=== PATIENT | male | born 1945 | race Caucasian/White ===

== ENCOUNTER 2025-02-02 23:11 | Emergency (ER) | payer MEDICARE, SELFPAY ==
[2025-02-02 23:14] VITALS: BMI 30.1
[2025-02-02 23:15] VITALS: BP 168/88; PULSE 85; RESP 17; TEMP 36.6; O2SAT 96; BMI 30.1
--- NOTE | 2025-02-02 23:15 | XR_ITS ---
PROCEDURE INFORMATION: Exam: XR Pelvis Exam date and time: 02/02/2025 11:13 PM Age: 79 years old Clinical indication: Injury or trauma; Fall; Other: Pain TECHNIQUE: Imaging protocol: Radiologic exam of the pelvis. Views: 1 or 2 view. COMPARISON: CR XR PELVIS 1-2V 02/02/2025 11:13 PM FINDINGS: Bones/joints: Moderate degenerative changes throughout the lower lumbar spine. Osseous alignment appears normal. No acute fracture. Soft tissues: Unremarkable. IMPRESSION: No acute abnormality
--- NOTE | 2025-02-02 23:15 | XR_ITS ---
PROCEDURE INFORMATION: Exam: XR Chest Exam date and time: 02/02/2025 11:15 PM Age: 79 years old Clinical indication: Injury or trauma; Fall; Other: Pain TECHNIQUE: Imaging protocol: Radiologic exam of the chest. Views: 1 view. COMPARISON: CR XR CHEST PORTABLE 02/02/2025 11:15 PM FINDINGS: Lungs: Lung volumes are slightly low. No active infiltrate. Pleural spaces: No pleural fluid. No definite pneumothorax. Curvilinear density over the lateral right chest are compatible with skin folds. Heart/Mediastinum: Calcified aortopulmonary window lymph node noted in the mediastinum. Moderate atherosclerotic calcification of the aorta. Bones/joints: Moderate degenerative changes of the spine and shoulders. No acute osseous abnormality IMPRESSION: No acute abnormality
--- NOTE | 2025-02-02 23:16 | CT_ITS ---
PROCEDURE INFORMATION: Exam: CTA Chest With Contrast Exam date and time: 02/03/2025 12:01 AM Age: 79 years old Clinical indication: Injury or trauma; Additional info: Trauma, critical injury suspected TECHNIQUE: Imaging protocol: Computed tomographic angiography of the chest with contrast. Exam focused on the arteries. 3D rendering (Not supervised by radiologist): MIP and/or 3D reconstructed images were created by the technologist. Radiation optimization: All CT scans at this facility use at least one of these dose optimization techniques: automated exposure control; mA and/or kV adjustment per patient size (includes targeted exams where dose is matched to clinical indication); or iterative reconstruction. Contrast material: ISO 370; Contrast volume: 80 ml; Contrast route: INTRAVENOUS (IV); COMPARISON: CR XR CHEST PORTABLE 02/02/2025 11:15 PM FINDINGS: Pulmonary arteries: Normal. No pulmonary emboli. Aorta: Moderate atherosclerotic calcification throughout the thoracic aorta. No evidence of aneurysm or dissection. No evidence of acute injury. Lungs: Unremarkable. No consolidation. No masses. Pleural spaces: Moderate volume of simple appearing right pleural fluid. No pneumothorax. Heart: Small pericardial effusion. Heart is mildly enlarged. Lymph nodes: Unremarkable. No enlarged lymph nodes. Bones/joints: Moderate multilevel anterior syndesmophyte formation throughout the lower thoracic spine. No vertebral body compression. No acute fracture. Soft tissues: Unremarkable. IMPRESSION: 1. Moderate volume simple appearing right pleural fluid 2. Mild cardiomegaly with small pericardial effusion 3. Chronic osseous and atherosclerotic changes as described
--- NOTE | 2025-02-02 23:16 | CT_ITS ---
PROCEDURE INFORMATION: Exam: CT Lumbar Spine Without Contrast Exam date and time: 02/02/2025 11:55 PM Age: 79 years old Clinical indication: Injury or trauma; Fall; Additional info: Trauma, critical injury suspected TECHNIQUE: Imaging protocol: Computed tomography of the lumbar spine without contrast. Radiation optimization: All CT scans at this facility use at least one of these dose optimization techniques: automated exposure control; mA and/or kV adjustment per patient size (includes targeted exams where dose is matched to clinical indication); or iterative reconstruction. COMPARISON: CT THORACIC SPINE WO CON 02/02/2025 11:52 PM FINDINGS: Bones/joints: Osseous alignment is normal. No vertebral body compression. No acute fracture. Moderate multilevel disc bulge and anterior osteophyte formation throughout the lumbar spine. Severe bilateral facet arthropathy at L4-L5 and L5-S1. Severe narrowing of the bilateral L3 and L4 neural foramina. More mild neural foraminal stenosis at the other lumbar levels. Moderate degenerative changes of the bilateral sacroiliac joints. Pleural spaces: Partially visualized right pleural fluid. Vasculature: Diffuse atherosclerotic calcification throughout the abdominal aorta and its branches. No aneurysm. Soft tissues: Unremarkable. IMPRESSION: No acute abnormality in the lumbar spine. Multilevel degenerative changes as noted
--- NOTE | 2025-02-02 23:16 | CT_ITS ---
PROCEDURE INFORMATION: Exam: CTA Abdomen and Pelvis With Contrast Exam date and time: 02/03/2025 12:01 AM Age: 79 years old Clinical indication: Injury or trauma; Additional info: Trauma, critical injury suspected TECHNIQUE: Imaging protocol: Computed tomographic angiography of the abdomen and pelvis with contrast. Exam focused on the arteries. 3D rendering (Not supervised by radiologist): MIP and/or 3D reconstructed images were created by the technologist. Radiation optimization: All CT scans at this facility use at least one of these dose optimization techniques: automated exposure control; mA and/or kV adjustment per patient size (includes targeted exams where dose is matched to clinical indication); or iterative reconstruction. Contrast material: ISO 370; Contrast volume: 80 ml; Contrast route: INTRAVENOUS (IV); COMPARISON: CR XR PELVIS 1-2V 02/02/2025 11:13 PM FINDINGS: Aorta: Moderate atherosclerotic calcification throughout the abdominal aorta. No evidence of aneurysm or dissection. Celiac and mesenteric arteries: Mild stenosis of the distal portions of the celiac and superior mesenteric arteries. Inferior mesenteric artery is patent. Renal arteries: Mild stenosis of the right renal artery. Left renal artery appears widely patent. Right iliac arteries: No occlusion or significant stenosis. Left iliac arteries: No occlusion or significant stenosis. Liver: No mass. Gallbladder and biliary ducts: Unremarkable. No calcified stones. No ductal dilation. Pancreas: Unremarkable. No mass. No ductal dilation. Spleen: Unremarkable. No splenomegaly. Adrenal glands: Unremarkable. No mass. Kidneys and ureters: Unremarkable. No solid mass. No hydronephrosis. Stomach and bowel: Unremarkable. No obstruction. No mucosal thickening. Appendix: No evidence of appendicitis. Intraperitoneal space: Unremarkable. No free air. No significant fluid collection. Lymph nodes: Unremarkable. No enlarged lymph nodes. Urinary bladder: Unremarkable. No mass. Reproductive: Unremarkable as visualized. Bones/joints: [id number] multilevel degenerative disc changes and facet arthropathy throughout the lower spine. No vertebral body compression. No acute fracture. Soft tissues: Unremarkable. IMPRESSION: No acute posttraumatic changes. Chronic osseous and atherosclerotic changes as described.
--- NOTE | 2025-02-02 23:16 | CT_ITS ---
PROCEDURE INFORMATION: Exam: CTA Head With Contrast, Arteriography Exam date and time: 02/02/2025 11:58 PM Age: 79 years old Clinical indication: Trauma, critical injury suspected TECHNIQUE: Imaging protocol: Computed tomographic angiography of the head with contrast. Exam focused on the arteries. 3D rendering (Not supervised by radiologist): MIP and/or 3D reconstructed images were created by the technologist. Radiation optimization: All CT scans at this facility use at least one of these dose optimization techniques: automated exposure control; mA and/or kV adjustment per patient size (includes targeted exams where dose is matched to clinical indication); or iterative reconstruction. Contrast material: ISO; Contrast volume: 80 ml; Contrast route: INTRAVENOUS (IV); COMPARISON: CT HEAD/BRAIN WO CON 02/02/2025 11:45 PM FINDINGS: ANTERIOR CIRCULATION: Right internal carotid artery: Intracranial segment is patent with no significant stenosis. No aneurysm. Right middle cerebral artery: No occlusion or significant stenosis. No aneurysm. Right anterior cerebral artery: No occlusion or significant stenosis. No aneurysm. Left internal carotid artery: Intracranial segment is patent with no significant stenosis. No aneurysm. Left middle cerebral artery: No occlusion or significant stenosis. No aneurysm. Left anterior cerebral artery: No occlusion or significant stenosis. No aneurysm. POSTERIOR CIRCULATION: Right vertebral artery: No occlusion or significant stenosis. No aneurysm. Left vertebral artery: No occlusion or significant stenosis. No aneurysm. Basilar artery: No occlusion or significant stenosis. No aneurysm. Right posterior cerebral artery: No occlusion or significant stenosis. No aneurysm. Left posterior cerebral artery: No occlusion or significant stenosis. No aneurysm. Brain: No definite mass, mass effect, or midline shift. Cerebral ventricles: No ventriculomegaly. Orbital cavities: Hematoma overlies the left orbit and left frontal region without retrobulbar hematoma and without subjacent fracture. Active extravasation from a small vessel along the superolateral aspect of this hematoma. Image 52 of the coronal series. Bones/joints: Unremarkable. No acute fracture. Soft tissues: Unremarkable. IMPRESSION: Hematoma overlies the left orbit and left frontal region without retrobulbar hematoma and without subjacent fracture. Active extravasation from a small vessel along the superolateral aspect of this hematoma. 52 of the coronal series.
--- NOTE | 2025-02-02 23:16 | CT_ITS ---
PROCEDURE INFORMATION: Exam: CT Head Without Contrast Exam date and time: 02/02/2025 11:45 PM Age: 79 years old Clinical indication: Injury or trauma; Fall; Additional info: Trauma, critical injury suspected TECHNIQUE: Imaging protocol: Computed tomography of the head without contrast. Total images: 618 Radiation optimization: All CT scans at this facility use at least one of these dose optimization techniques: automated exposure control; mA and/or kV adjustment per patient size (includes targeted exams where dose is matched to clinical indication); or iterative reconstruction. COMPARISON: No relevant prior studies available. FINDINGS: Brain: No acute intracranial hemorrhage, midline shift, or mass. Mild to moderate cortical and cerebellar atrophy. Mild remote white matter small-vessel ischemic changes. No acute territorial infarct. Basilar cisterns are maintained. Cerebral ventricles: No ventriculomegaly. Paranasal sinuses: Mild polypoid mucosal thickening base of the right maxillary sinus. Paranasal sinuses are otherwise clear. Mastoid air cells: Visualized mastoid air cells are well aerated. Orbital cavities: Bilateral orbital lens replacement. Bones: Unremarkable. No acute fracture. Soft tissues: Considerable left preorbital hematoma extending within the left frontal scalp and with considerable adjacent left facial edema. Vasculature: Severe calcifications bilateral intracranial internal carotid arteries. IMPRESSION: 1. Considerable left preorbital hematoma extending within the left frontal scalp. Contiguous left facial edema. 2. No acute intracranial process. 3. Chronic intracranial findings. 4. No skull or orbital fracture.
--- NOTE | 2025-02-02 23:16 | CT_ITS ---
PROCEDURE INFORMATION: Exam: CT Thoracic Spine Without Contrast Exam date and time: 02/02/2025 11:52 PM Age: 79 years old Clinical indication: Injury or trauma; Fall; Blunt trauma (contusions or hematomas); Additional info: Trauma, critical injury suspected TECHNIQUE: Imaging protocol: Computed tomography of the thoracic spine without contrast. Radiation optimization: All CT scans at this facility use at least one of these dose optimization techniques: automated exposure control; mA and/or kV adjustment per patient size (includes targeted exams where dose is matched to clinical indication); or iterative reconstruction. COMPARISON: CT CERVICAL SPINE WO CON 02/02/2025 11:49 PM FINDINGS: Bones/joints: Mild scoliosis of the upper thoracic spine. No vertebral body compression. No acute fracture. Moderate multilevel anterior syndesmophyte formation throughout the mid to lower thoracic spine. Soft tissues: Unremarkable. Vasculature: Dense atherosclerotic calcification throughout the thoracic aorta. No aneurysm. Pleural spaces: Partially visualized right pleural fluid. IMPRESSION: 1. No acute abnormality of the thoracic spine. 2. Partially visualized right pleural fluid
--- NOTE | 2025-02-02 23:16 | CT_ITS ---
PROCEDURE INFORMATION: Exam: CTA Neck With Contrast Exam date and time: 02/02/2025 11:58 PM Age: 79 years old Clinical indication: Injury or trauma; Fall; Additional info: Trauma, critical injury suspected TECHNIQUE: Imaging protocol: Computed tomographic angiography of the neck with contrast. Exam focused on the cervical segments of the vasculature. 3D rendering (Not supervised by radiologist): MIP and/or 3D reconstructed images were created by the technologist. Radiation optimization: All CT scans at this facility use at least one of these dose optimization techniques: automated exposure control; mA and/or kV adjustment per patient size (includes targeted exams where dose is matched to clinical indication); or iterative reconstruction. Contrast material: ISO; Contrast volume: 80 ml; Contrast route: INTRAVENOUS (IV); COMPARISON: CT CERVICAL SPINE WO CON 02/02/2025 11:49 PM FINDINGS: Atherosclerosis is seen throughout the carotid and vertebral systems without high-grade stenosis. The Right common carotid artery: No high-grade stenosis. No dissection or occlusion. Right internal carotid artery: No high-grade stenosis of the extracranial segment. No dissection or occlusion. Right external carotid artery: No occlusion or high-grade stenosis of the origin. Left common carotid artery: No high-grade stenosis. No dissection or occlusion. Left internal carotid artery: No high-grade stenosis of the extracranial segment. No dissection or occlusion. Left external carotid artery: No occlusion or high-grade stenosis of the origin. Right vertebral artery: No high-grade stenosis. No dissection or occlusion. Left vertebral artery: No high-grade stenosis. No dissection or occlusion. Soft tissues: Normal. No significant soft tissue swelling. Bones/joints: No acute fracture. Pleural spaces: Moderate right pleural effusion. IMPRESSION: No evidence of acute vascular injury to the neck. REFERENCES: NASCET CRITERIA. The degree of stenosis in the cervical segment of the internal carotid artery is based on NASCET criteria. Normal is no stenosis. Mild is less than 50% stenosis. Moderate is 50-69% stenosis. Severe is 70% to 99% stenosis. Total occlusion is no detectable patent lumen.
--- NOTE | 2025-02-02 23:16 | CT_ITS ---
PROCEDURE INFORMATION: Exam: CT Cervical Spine Without Contrast Exam date and time: 02/02/2025 11:49 PM Age: 79 years old Clinical indication: Injury or trauma; Additional info: Trauma, critical injury suspected TECHNIQUE: Imaging protocol: Computed tomography of the cervical spine without contrast. Total images: 564 Radiation optimization: All CT scans at this facility use at least one of these dose optimization techniques: automated exposure control; mA and/or kV adjustment per patient size (includes targeted exams where dose is matched to clinical indication); or iterative reconstruction. COMPARISON: CT FACIAL BONES WO CON 02/02/2025 11:47 PM FINDINGS: Bones: Straightened cervical lordosis with minor levocurvature. Vertebral body height and alignment is maintained. The base of the dens and the C1 and C2 articulations are preserved with mild degenerative arthropathy. The cervicooccipital junction is intact. The facet joints are appropriately aligned with moderate multilevel degenerative spondylosis, greatest on the left at C2-C3 and C3-C4. Posterior elements are intact. Moderate to severe degenerative disc disease C4 through T1 with associated posterior projecting disc osteophyte complex at all these levels. Mild multilevel acquired spinal canal stenosis secondary to degenerative changes. Multilevel bilateral neural foraminal encroachments. Bridging anterior endplate osteophyte formation at multiple consecutive levels. No concerning bone lesions. Lungs: Lung apices are clear. Pleural spaces: Right pleural effusion with simple water attenuation. Vasculature: Mild calcification right greater than left carotid arteries. Soft tissues: No prevertebral soft tissue swelling. Unremarkable soft tissues of the neck. IMPRESSION: 1. No acute cervical fracture or traumatic subluxation. 2. Straightened lordosis with minor levocurvature from position or muscle spasm. 3. Severe multilevel degenerative disc disease. 4. Right pleural effusion with water attenuation.
--- NOTE | 2025-02-02 23:17 | CT_ITS ---
PROCEDURE INFORMATION: Exam: CT Maxillofacial Without Contrast Exam date and time: 02/02/2025 11:47 PM Age: 79 years old Clinical indication: Injury or trauma; Fall; Additional info: Trauma, critical injury suspected TECHNIQUE: Imaging protocol: Computed tomography of the face without contrast. Total images: 286 Radiation optimization: All CT scans at this facility use at least one of these dose optimization techniques: automated exposure control; mA and/or kV adjustment per patient size (includes targeted exams where dose is matched to clinical indication); or iterative reconstruction. COMPARISON: CT HEAD/BRAIN WO CON 02/02/2025 11:45 PM FINDINGS: Paranasal sinuses: Mild polypoid mucosal thickening base of the right maxillary sinus. Paranasal sinuses are otherwise clear. No air-fluid levels. Orbital cavities: Orbital globes appear symmetric. Bilateral lens replacement. No retro-orbital mass, fluid, or air. Nasal cavity: Mild nasal septal deviation to the left. Unremarkable nasal turbinates. Teeth: Dental artifact obscuring adjacent structures. Bones: No acute orbital or facial bone fracture. No concerning bone lesions. Unremarkable skull base anatomy. No mandibular fracture or dislocation. Symmetric temporomandibular joints. No acute nasal bone fracture. Soft tissues: Large left preorbital hematoma, extending to the left frontal scalp. Additional considerable left facial edema. IMPRESSION: 1. Considerable left preorbital hematoma, extending to the left frontal scalp. 2. Additional considerable left facial edema 3. No acute facial bone fracture. 4. Mild polypoid mucosal thickening base of the right maxillary sinus.
[2025-02-02 23:20] VITALS: BP 188/127; PULSE 89; RESP 18; O2SAT 97
--- NOTE | 2025-02-02 23:21 | ECG_ITS ---
APPROVED REPORT Exam: Resting ECG HR:92 bpm ECG Measurements Heart Rate 92 AXES QRSd 94 QRS 12 QT 387 T 43 QTc 436 Conclusion ATRIAL FIBRILLATION ABNORMAL RHYTHM ECG No STEMI Electronically signed by : ZULMA WHITTAKER, 02/03/2025 07:06:40
[2025-02-02] MEDS: LACTATED RINGERS 1000ML 1,000 ML 999 ML IV (23:22)
[2025-02-02 23:24] LABS: Hematocrit 31.9 % (42.0-52.0); Hemoglobin 11.6 g/dL (14.1-18.0); Immature Granulocytes % 0.3 %; Mean Corpuscular HGB Conc 36.4 g/dL (31.8-35.4); Mean Corpuscular Volume 121.3 fl (80-94); Nucleated Red Blood Cells % 0 %; Platelet Count 123 K/mm3 (142-424); Red Blood Count 2.63 M/mm3 (4.60-6.20); Red Cell Distribution Width-SD 56.6 fL; White Blood Count 6.4 K/mm3 (4.8-10.8)
[2025-02-02 23:27] VITALS: BP 181/111; PULSE 79; RESP 14; O2SAT 97
[2025-02-02 23:27] LABS: Mean Corpuscular Hemoglobin 44.1 pg (27.0-31.2)
[2025-02-02 23:29] VITALS: BP 181/110; PULSE 75; RESP 16; O2SAT 98
[2025-02-02 23:36] LABS: Activated Partial Thrombo Time 28.6 seconds (22.8-30.6); INR 1.03 (0.9-1.1); Prothrombin Time 11.4 seconds (10.1-12.5)
[2025-02-02 23:37] LABS: Alanine Aminotransferase 26 U/L (12-78); Albumin Level 4.4 g/dl (3.5-5.0); Albumin/Globulin Ratio 1.4 (1.1-1.8); Alkaline Phosphatase 196 U/L (38-126); Anion Gap 19.0 mEq/L (5-15); Aspartate Amino Transferase 56 U/L (17-59); Bilirubin,Total 0.9 mg/dl (0.2-1.3); Blood Urea Nitrogen 23 mg/dl (9-20); Calcium 8.9 mg/dl (8.4-10.2); Carbon Dioxide 26 mmol/L (22.0-30.0); Chloride 94 mmol/L (98-107); Creatinine Clearance Estimated 83 mL/min (50-200); Creatinine,Serum 1.00 mg/dl (0.66-1.25); Estimated Glomerular Filt Rate 72 ml/min (>60); GFR (African American) 87 ML/MIN (>60); Globulin 3.1 g/dL (1.3-3.2); Glucose 144 mg/dl (74-100); Potassium 4.0 mmoL/L (3.5-5.1); Sodium 135 mmol/L (136-145); Total Protein,Serum 7.5 g/dl (6.3-8.2)
--- NOTE | 2025-02-02 23:40 | XR_ITS ---
PROCEDURE INFORMATION: Exam: XR Pelvis Exam date and time: 02/03/2025 12:06 AM Age: 79 years old Clinical indication: Injury or trauma; Fall; Blunt trauma (contusions or hematomas); Bilateral; Abdomen, lower TECHNIQUE: Imaging protocol: Radiologic exam of the pelvis. Views: 1 or 2 view. COMPARISON: CT ANGIO ABD/PEL - TRAUMA 02/03/2025 12:01 AM FINDINGS: Bones/joints: Osseous alignment is normal. No acute fracture. No severe arthritic changes in the bony pelvis. Soft tissues: Unremarkable. IMPRESSION: No acute abnormality
[2025-02-02 23:41] VITALS: BP 181/110; PULSE 86; RESP 17; O2SAT 98
[2025-02-02 23:48] LABS: Troponin I 0.02 ng/ml (0.00-0.034)
[2025-02-03] MEDS: SODIUM CHLORIDE 0.9% 10ML SYR (RAD ONLY) 10 ML IV
[2025-02-03] MEDS: IOPAMIDOL-370 (76%);100ML BOTTLE 160 ML IV
[2025-02-03] MEDS: 0.9 % SODIUM CHLORIDE 50 ML VIAL IV
--- NOTE | 2025-02-03 00:08 | HMH.EDGENADL ---
Discharge Plan Prescriptions Prescriptions: No Action atorvastatin 40 mg tablet 40 mg PO HS Patient Comments: TAKE 1 TABLET BY MOUTH EVERY DAY IN THE EVENING levothyroxine 137 mcg tablet 137 mcg PO DAILY Patient Comments: TAKE 1 TABLET EVERY DAY BY ORAL ROUTE IN THE MORNING. carvedilol 12.5 mg tablet 12.5 mg PO BID Patient Comments: TAKE 1 TABLET BY MOUTH TWICE A DAY WITH FOOD lisinopril 20 mg tablet 20 mg PO DAILY Patient Comments: TAKE 1 TABLET BY MOUTH EVERY DAY sertraline 100 mg tablet 100 mg PO DAILY Patient Comments: TAKE 1 TABLET BY MOUTH EVERY DAY potassium chloride 10 mEq tablet extended release 10 meq PO DAILY PRN (Reason: Spasms) Patient Comments: TAKE 1 TABLET BY MOUTH EVERY DAY NEEDED FOR 90 DAYS primidone 250 mg tablet 500 - 750 mg PO HS Patient Comments: TAKE 2 TO 3 TABLETS AT BEDTIME propranolol 20 mg tablet 20 mg PO BID Patient Comments: TAKE 1 TABLET BY MOUTH EVERY MORNING AND 1 AT NOON fluticasone propionate 50 mcg/actuation spray,suspension 1 spray INTRANASAL BID PRN (Reason: Nasal Congestion) Patient Comments: USE 1 SPRAY IN EACH NOSTRIL EVERY DAY DIRECTED NEEDED Eliquis 5 mg tablet 5 mg PO BID Patient Comments: TAKE 1 TABLET BY MOUTH TWICE A DAY Referrals Follow up/Referrals: Provider,Referral, MD [Primary Care Provider, Medical] - See instructions Clinical Impressions Clinical Impression: Laceration of face, Hematoma of face, Ground-level fall, Alcohol intoxication, Multiple skin tears, Pleural effusion, Pericardial effusion Stand Alone Forms Stand Alone Forms: Transfer Record - ED Print Language Print Language: Iranian Discharge ED Provider: Christina Baldwin Adult HPI General Chief complaint: Trauma Alert Stated complaint: fall Time Seen by Provider: 02/02/25 23:13 Mode of Arrival: EMS Source of Information: Patient and EMS Limitations: No Limitations Description of Symptoms (Recalled from ER Triage Doc. by RN): Laceration and swelling to left head History of Present Illness HPI narrative: 79-year-old male with history of atrial fibrillation on Eliquis presents to the ER with EMS after fall. Patient reports he was standing at the bottom of his steps when he lost his balance and fell forward striking his left face on the steps. Reportedly no loss of consciousness. EMS was called and found the patient awake with bleeding from laceration above left eyebrow. He had been able to move himself into the house. They report he was hypertensive during transportation. He did not receive any medications while being transported. He reports no numbness, tingling, or weakness. Denies neck pain. He does report mild mid back pain which he reports is chronic. His only new complaint is the pain in the left forehead/eyebrow area. He has swelling around the left eye but when open he states he can see out of it just fine. He denies any chest pain or difficulty breathing. He admits to drinking alcohol tonight. EMS reports he told them he drank 2 bourbon minor and a glass of wine. He states this is about how much he typically drinks on a daily basis. He has multiple old skin tears that he states are from his blood thinners. Related Data Home Medications ?Medication ?Instructions ?Recorded ?Confirmed apixaban 5 mg tablet (Eliquis) 5 mg PO BID 02/03/25 02/03/25 atorvastatin 40 mg tablet 40 mg PO HS 02/03/25 02/03/25 carvedilol 12.5 mg tablet 12.5 mg PO BID 02/03/25 02/03/25 fluticasone propionate 50 1 spray intranasal BID PRN Nasal 02/03/25 02/03/25 mcg/actuation nasal Congestion spray,suspension levothyroxine 137 mcg tablet 137 mcg PO DAILY 02/03/25 02/03/25 lisinopril 20 mg tablet 20 mg PO DAILY 02/03/25 02/03/25 potassium chloride 10 mEq 10 meq PO DAILY PRN Spasms 02/03/25 02/03/25 tablet,extended release primidone 250 mg tablet 500 - 750 mg PO HS 02/03/25 02/03/25 propranolol 20 mg tablet 20 mg PO BID 02/03/25 02/03/25 sertraline 100 mg tablet 100 mg PO DAILY 02/03/25 02/03/25 Allergies Allergy/AdvReac Type Severity Reaction Status Date / Time No Known Allergies Allergy Verified 02/02/25 23:14 [facility] Disclaimer: The information contained in this section may have been updated after the patient was seen, as this information can be updated by other users. Social History Smoking Status: Former smoker alcohol intake: current current occupational status: other Travel in the last 8 weeks?: None ROS Obtained: Yes Systems reviewed as appropriate & no additional complaints except as documented Per HPI Physical Exam General General appearance: alert and appears intoxicated Head Head exam: normocephalic and other (Laceration above the left eyebrow approximately 1.5 cm in length with pulsatile bleeding. Skin tear left cheek.) Eye Eye exam: Present PERRL, EOMI and other (Significant left periorbital swelling but when I assist the patient with opening the eye he states his vision is normal out of it and has full extraocular movements which are painless. No proptosis. Normal fluorescein exam.) ENT ENT exam: Present mucous membranes moist Neck Neck exam: Present normal inspection, full ROM and other (C-collar applied upon arrival to the ER); Absent tenderness Chest Chest inspection: Present symmetric chest wall rise; Absent tenderness Respiratory Respiratory exam: Present normal lung sounds bilaterally; Absent respiratory distress, wheezes or stridor Cardiovascular Cardiovascular exam: Present regular rate and irregular rhythm Abdominal Exam Abdominal exam: Present soft; Absent distention or tenderness Extremities Exam Extremities exam: Present full ROM and other (Skin tears on bilateral upper extremities; pelvis stable); Absent tenderness, edema or joint swelling Back Exam Back exam: Present tenderness (Mild diffuse with no focal tenderness, no deformity or step-off); Absent CVA tenderness (R) or CVA tenderness (L) Neurological Exam Neurological exam: Present alert and oriented X3; Absent motor sensory deficit Psychiatric Psychiatric exam: Present normal affect and normal mood Skin Skin exam: Present warm and dry Medical Decision Making Medical Records Medical records reviewed: Yes I reviewed the patient's medical records. Screening: Per USPSTF and CDC recommendations, given the prevalence of disease in our region, it is our hospital?s policy to screen for HIV and viral Hepatitis for all patients aged 18 and over and those with ongoing risk factors. [place] Inquiry Pt receiving controlled substance: No Vital Signs: 02/02/25 23:15 02/02/25 23:20 02/02/25 23:27 Temperature 98 F Temperature Source Oral Pulse Rate 89 79 Pulse Rate [Radial] 85 Respiratory Rate 17 18 14 Blood Pressure 188/127 H 181/111 H Blood Pressure [Left Arm] 168/88 H Blood Pressure Mean 155 139 Blood Pressure Mean [Left Arm] 114 Blood Pressure Source [Left Arm] Manual Cuff/ Auscultation Blood Pressure Position [Left Arm] Supine 02 Sat by Pulse Oximetry 96 97 97 Oxygen Delivery Method Room Air 02/02/25 23:29 02/02/25 23:41 02/03/25 00:27 Temperature Temperature Source Pulse Rate 75 80 Pulse Rate [Radial] 86 Respiratory Rate 16 17 16 Blood Pressure 181/110 H 169/117 H Blood Pressure [Left Arm] 181/110 H Blood Pressure Mean 133 124 Blood Pressure Mean [Left Arm] 133 Blood Pressure Source [Left Arm] Automatic Cuff Blood Pressure Position [Left Arm] Supine 02 Sat by Pulse Oximetry 98 98 92 L Oxygen Delivery Method Room Air 02/03/25 00:30 Temperature Temperature Source Pulse Rate 80 Pulse Rate [Radial] Respiratory Rate 18 Blood Pressure 179/116 H Blood Pressure [Left Arm] Blood Pressure Mean 120 Blood Pressure Mean [Left Arm] Blood Pressure Source [Left Arm] Blood Pressure Position [Left Arm] 02 Sat by Pulse Oximetry 97 Oxygen Delivery Method Lab Data Lab Results 02/02/25 23:15: WBC 6.4, RBC 2.63 L, Hgb 11.6 L, Hct 31.9 L, MCV 121.3 H, MCH 44.1 H*, MCHC 36.4 H, RDW 12.8, Plt Count 123 L, MPV 10.7 H, Neut % (Auto) 71.0, Lymph % (Auto) 19.3, [place] % (Auto) 5.5, Eos % (Auto) 3.1, Baso % (Auto) 0.8, Neut # (Auto) 4.5, Lymph # (Auto) 1.2, [place] # (Auto) 0.4, Eos # (Auto) 0.2, Baso # (Auto) 0.1, PT 11.4, INR 1.03, APTT 28.6, Sodium 135 L, Potassium 4.0, Chloride 94 L, Carbon Dioxide 26, Anion Gap 19.0 H, BUN 23 H, Creatinine 1.00, Estimated Creat Clear 83, Estimated GFR 72, Est GFR ( Amer) 87, Glucose 144 H, Lactate 2.6 H, Calcium 8.9, Total Bilirubin 0.9, AST 56, ALT 26, Alkaline Phosphatase 196 H, Troponin I 0.02, Total Protein 7.5, Albumin 4.4, Globulin 3.1, Albumin/Globulin Ratio 1.4, Plasma/Serum Alcohol 112 H 02/03/25 00:23: Urine Color Yellow, Urine Appearance Clear, Urine pH 6.0, Ur Specific [place] <= 1.005, Urine Protein 1+ A, Urine Glucose (UA) Negative, Urine Ketones Negative, Urine Blood Trace-i, Urine Nitrate Negative, Urine Bilirubin Negative, Urine Urobilinogen 0.2, Ur Leukocyte Esterase Negative, Urine RBC Occasional, Urine WBC None, Ur Squamous Epith Cells Occasional, Urine Bacteria None, Urine Opiates Screen Negative, Urine Methadone Screen Negative, Ur Barbituates Screen Positive H, Ur Phencyclidine Scrn Negative, Ur Amphetamines Screen Negative, U Benzodiazepines Scrn Negative, Urine Cocaine Screen Negative, U Marijuana (THC) Screen Negative 02/02/25 23:15 02/02/25 23:15 Orders (Tests/Meds): ED MEDICATIONS Generic Name Dose Route Start Last Admin Trade Name Freq PRN Reason Stop Dose Admin Sodium Chloride 10 ml 02/02/25 23:15 Sodium Chloride 0.9% 10ml Flush Syringe IV 03/04/25 23:14 NEEDED PRN Maintain IV Site Tetanus/Reduced Diphtheria/Acell Pertussis 0.5 ml 02/02/25 23:15 Tet/Diphth/Pert-Adult 0.5ml Syringe IM 03/04/25 23:14 .ONCE D[place] Discontinued Medications Generic Name Dose Route Start Last Admin Trade Name Freq PRN Reason Stop Dose Admin Lactated Ringer's 1,000 mls @ 999 mls/hr 02/02/25 23:15 02/03/25 00:28 Lactated Ringer's 1000 Ml Bag IV 02/03/25 00:15 Infused .Q1H1M DALTON Infusion Iopamidol 160 ml 02/02/25 23:59 02/03/25 00:00 Iopamidol-370 (76%);100ml Bottle IV 02/03/25 00:00 160 ml ONCE ONE Administration Sodium Chloride 50 ml 02/02/25 23:59 02/03/25 00:00 0.9 % Sodium Chloride 50 Ml Vial IV 02/03/25 00:00 50 ml ONCE ONE Administration Sodium Chloride 10 ml 02/02/25 23:59 02/03/25 00:00 Sodium Chloride 0.9% 10ml Syr (Rad Only) IV 02/03/25 00:00 10 ml ONCE ONE Administration ORDERS Category Date Time Status CT angio abd/pel - TRAUMA Stat Cat Scan 02/02/25 23:[address] angio chest - dissection Stat Cat Scan 02/02/25 23:[address] angio head Stat Cat Scan 02/02/25 23:[address] angio neck Stat Cat Scan 02/02/25 23:[address] cervical spine wo con Stat Cat Scan 02/02/25 23:[address] facial bones wo con Stat Cat Scan 02/02/25 23:[address] head/brain wo con Stat Cat Scan 02/02/25 23:[address] lumbar spine wo con Stat Cat Scan 02/02/25 23:[address] thoracic spine wo con Stat Cat Scan 02/02/25 23:16 Completed POCUS Point of Care (ER Only) Stat Exams 02/02/25 23:19 Completed XR chest portable Stat Exams 02/02/25 23:15 Completed XR pelvis 1-2V Stat Exams 02/02/25 23:15 Completed XR pelvis 1-2V Stat Exams 02/02/25 23:40 Completed Activated Partial Thrombo Time Stat Lab 02/02/25 23:15 Completed Complete Blood Count Auto Diff Stat Lab 02/02/25 23:15 Completed Comprehensive Metabolic Panel Stat Lab 02/02/25 23:15 Completed Drug Screen,Urine Stat Lab 02/03/25 00:23 Completed Ethyl Alcohol Stat Lab 02/02/25 23:15 Completed Lactic Acid Stat Lab 02/02/25 23:15 Completed Prothrombin Time INR Stat Lab 02/02/25 23:15 Completed Troponin I Q3H Lab 02/03/25 02:30 Ordered Troponin I Q3H Lab 02/03/25 05:30 Ordered Troponin I Stat Lab 02/02/25 23:15 Completed Urinalysis and Microscopic Stat Lab 02/03/25 00:23 Completed Medical Decision Narrative: In summary, this 79-year-old male with comorbidities described in the HPI presents to the emergency department today with laceration above the left eyebrow after ground-level fall. Patient was a trauma alert due to fall on blood thinners so I was at bedside upon patient's arrival. Airway intact, bilateral breath sounds present, 2+ left radial pulse, GCS 15. C-collar applied upon arrival to the ER though he has no pain or tenderness in the neck. Patient had obvious wound above left eyebrow that had a dressing from EMS covering it. E-FAST personally performed and interpreted is nondiagnostic due to inability to view the left upper quadrant. Patient is hemodynamically stable at this time so I have low suspicion for acute intra-abdominal or intrathoracic bleeding. Secondary exam demonstrates mild diffuse back tenderness with no focal tenderness, no deformity or step-off. Patient is GCS 15 with no neurologic deficits appreciated. He has significant left periorbital swelling, pressure in the left eye 17 mmHg, pressure in the right 15 mmHg, he requires assistance to open the left eye due to swelling but states his vision is normal through it and has full extraocular movements with no proptosis. No evidence of retrobulbar hematoma. Fluorescein exam negative for injury to the eye. Skin tears on the left side of the face as well as bilateral upper extremities. Full range of motion of the extremities. No other abnormalities appreciated on exam. Differential diagnosis includes but is not limited to laceration, intracranial bleed, skull fracture, facial fracture, alcohol intoxication, electrolyte abnormality, I considered the possibility of intrathoracic or intra-abdominal traumatic injury including potential arterial injury which I cannot rule out because patient has a nondiagnostic E-FAST. Chest and pelvis x-ray personally interpreted at bedside as they were performed demonstrate no obvious displaced rib fractures, no large pneumothorax or hemothorax, no open book pelvis fracture. See radiology reads for final interpreted Asians. Patient reports last tetanus shot was 2 years ago. Ruling out the most morbid conditions drove my assessment. Hematologic and serum labs, urinalysis, CT imaging including angiography were ordered. I examined the laceration above the left eyebrow which has pulsatile bleeding. I placed multiple [id number] sutures to obtain hemostatic control and then placed a compressive dressing prior to patient going to CT. ECG personally interpreted demonstrates atrial fibrillation, rate 92, normal axis, normal QTc, no STEMI. Labs personally reviewed demonstrate no leukocytosis, anemia is present with hemoglobin 11.6, MCH is elevated, nonactionable at this time. Mild thrombocytopenia platelets 123. PT/INR and APTT normal, CMP with prerenal azotemia, patient is receiving IV fluids. Mildly elevated anion gap and slightly elevated lactic likely related to patient's mild dehydration and known alcohol intoxication. Initial troponin 0.02, nonactionable at this time. UA negative for findings of infection, UDS positive for barbiturates which are not prescribed, EtOH 112. CT head personally interpreted demonstrates no skull fracture, no intracranial bleed, patient does have obvious left-sided soft tissue hematoma. On CTA head you can see a small area of active extravasation, however on reexamination patient is not having any additional bleeding from the wound. No evidence of retrobulbar hematoma. Patient has no acute injury to the axial spine. See radiology reads for full interpretations. CT cervical spine negative for injury, cervical collar was cleared by me. No midline pain or tenderness, full range of motion, no paresthesias. Additional CT imaging was all reviewed, patient does have simple appearing right sided pleural effusion as well as small pericardial effusion. No evidence of other acute traumatic injury. See radiology reads for full interpretations. On reassessment patient does not have any active bleeding from the wound, he appears to be hemostatic but the bleeding that he had in to the soft tissues has caused continued swelling of the left eyelids and I am now unable to open the eye to expose the eye. I reached out to and spoke with transfer center Dr. García about this patient. She suggested that Eliquis reversal may be indicated if he continues having bleeding or that he may require embolization. She recommended transfer to [facility] for further evaluation. I am not going to reverse this patient at this time because he is actively in atrial fibrillation and while he has had swelling that worsened in the ER over the first hour, over the last hour it seems to have stopped swelling and I suspect that the compressive dressing and swelling have provided tamponade to the bleeding soft tissue artery. I believe at this time reversal of Eliquis while he is in atrial fibrillation would be dangerous and potentially cause stroke which would be more devastating than continuing to have a small facial bleed when he continues to be hemodynamically stable and resting comfortably. Patient is agreeable to the plan for transfer. Dressing remains in place with no evidence of bleeding. He was reassessed immediately prior to transfer and remains GCS 15, airway patent, resting comfortably. He was transferred in stable condition. Procedures Miscellaneous Procedure Procedure Performed: E-FAST ultrasound Indication: Ground-level fall on jamia Performed by: Christina Baldwin MD Views: [LUQ/RUQ/pelvis/limited cardiac/limited thoracic] Interpretation: Peritoneal free fluid: Nondiagnostic due to inability to visualize splenorenal recess Pericardial effusion: Trace versus fat pad Right lung pneumothorax: Absent Left lung pneumothorax: Absent Impression: Nondiagnostic EFAST ultrasound Images were saved in the permanent archive. The study was not technically adequate. CPT 89058-32 (limited cardiac) 16125?26 (limited abdominal) 05214?26 (chest) This study was performed by me, and I personally interpreted all images/videos. Based on my clinical judgment, these images were inadequate and did necessitate further imaging. Critical Care Critical Care Time Critical Care Time: Yes Attestation: On 02/02/25, the high probability of a clinically significant, sudden or life threatening deterioration of the following system(s) required my full and direct attention, intervention and personal management. The time I documented below is in addition to time spent performing reported procedures but includes the following listed in this critical care notation. Total Time Total Critical Care Time: 35
[2025-02-03 00:27] VITALS: BP 169/117; PULSE 80; RESP 16; O2SAT 92
[2025-02-03 00:30] VITALS: BP 179/116; PULSE 80; RESP 18; O2SAT 97
[2025-02-03 00:33] LABS: Microscopic, Urine URINE MICROSCOPIC (MICROSCOPIC)
[2025-02-03 00:35] LABS: Bilirubin,Urine Negative (Negative); Color,Urine YELLOW (Yellow); Glucose,Urine (UA) Negative (Negative); Ketones,Urine Negative (Negative); Leukocyte Esterase,Urine Negative (Negative); PH,Urine 6.0 (5.0-8.5); Protein,Urine 1+ (Negative); Specific Gravity, Urine <= 1.005 (1.005-1.030); Urobilinogen,Urine 0.2 EU/dl (0.2)
[2025-02-03 00:46] LABS: RBC,Urine Occasional #/hpf (0-3); Squamous Epithelial Cell,Urine Occasional #/hpf (0-5)
[2025-02-03 00:47] LABS: Benzodiazepines Screen,Urine Negative ng/ml (<200)
[2025-02-03 00:48] LABS: Amphetamine/Metha Screen,Urine Negative ng/ml (<1000); Barbiturates Screen,Urine Positive ng/ml (<200)
[2025-02-03 00:49] LABS: Methadone Screen,Urine Negative ng/ml (<300)
[2025-02-03 00:51] LABS: Opiate Screen,Urine Negative ng/ml (<300)
[2025-02-03 01:01] VITALS: BP 147/81; PULSE 80; RESP 13; O2SAT 100
--- NOTE | 2025-02-03 01:06 | PC.NURSE ---
Call to [facility] for possible patient transfer
[2025-02-03 01:07] LABS: Phencyclidine Screen,Urine Negative ng/ml (<25)
[2025-02-03 01:30] VITALS: BP 148/95; PULSE 81; RESP 14; O2SAT 100
[2025-02-03 02:01] VITALS: BP 175/112; PULSE 76; RESP 15; O2SAT 98
--- NOTE | 2025-02-03 02:09 | PC.NURSE ---
Report called to Elham Bills RN at [facility]
[2025-02-03 02:24] VITALS: BP 175/112; PULSE 76; RESP 15; TEMP 36.6; O2SAT 98
[2025-02-03 03:21] LABS: Reflex Lactic Add Lactic Reflex
== END 2025-02-03 02:38 | disposition short-term general hospital (02) ==
PROVIDERS: Emergency Provider Emergency Medicine
DX: S01.81XA Laceration without foreign body of other part of head, initial encounter (principal); H02.844 Edema of left upper eyelid; H02.845 Edema of left lower eyelid; F10.929 Alcohol use, unspecified with intoxication, unspecified; F13.90 Sedative, hypnotic, or anxiolytic use, unspecified, uncomplicated; I31.39 Other pericardial effusion (noninflammatory); J90 Pleural effusion, not elsewhere classified; I48.91 Unspecified atrial fibrillation; Z79.01 Long term (current) use of anticoagulants; W10.8XXA Fall (on) (from) other stairs and steps, initial encounter; Y90.5 Blood alcohol level of 100-119 mg/100 ml; Z87.891 Personal history of nicotine dependence
CPT/HCPCS: 12051; 70450; 70486; 70496; 70498; 71045; 71275; 72125; 72128; 72131; 72170; 74174; 80053; 80307; 80320; 81001; 83605; 84484; 85025; 85610; 85730; 93005; 96360; 99285; 99291; G0390; J7120; Q9967